=== PATIENT | female | born 1955 | race Two or more races ===

== ENCOUNTER 2022-03-03 04:08 | Day surgery (SDC) | payer BC ==
[2022-02-25 17:32] VITALS: BMI 36.8
[2022-03-03] MEDS ORDERED: IBUPROFEN 400 MG TABLET (FP) PO PRN (06:48)
[2022-03-03] MEDS ORDERED: ACETAMINOPHEN 325 MG TABLET (FP) PO PRN ×2 (06:48→08:59)
[2022-03-03] MEDS ORDERED: PROPOFOL 20 ML ONE ×4 (07:29→07:30)
[2022-03-03] MEDS ORDERED: MIDAZOLAM HCL 2 MG/2 ML SINGLE DOSE VIAL ONE ×2 (07:29→08:15)
[2022-03-03] MEDS ORDERED: SUCCINYLCHOLINE CHLORIDE 200 MG/10 ML SYRINGE ONE (07:37)
[2022-03-03] MEDS ORDERED: oxyCODONE HCL 5 MG TABLET PO PRN (08:59)
[2022-03-03] MEDS ORDERED: ONDANSETRON 4 MG/2 ML VIAL IVPUSH PRN (08:59)
[2022-03-03] MEDS ORDERED: LACTATED RINGERS SOLUTION 1,000 ML IV SCH (09:00)
[2022-03-03 12:31] VITALS: BP 167/82; PULSE 74; TEMP 98.6
== END 2022-03-03 13:04 | disposition home or self-care (01) ==
LOC: JASU-SURG 04:08
PROVIDERS: ATTEND Obstetrics & Gynecology
PROC: 0UJD8ZZ Inspection of Uterus and Cervix, Via Natural or Artificial Opening Endoscopic (ICD-10-PCS; 2022-03-03)
PROC: 0UB98ZZ Excision of Uterus, Via Natural or Artificial Opening Endoscopic (ICD-10-PCS; principal; 2022-03-03 07:30)
PROC: 0UDB7ZX Extraction of Endometrium, Via Natural or Artificial Opening, Diagnostic (ICD-10-PCS; 2022-03-03 07:30)
DX: N95.0 Postmenopausal bleeding (principal); C54.1 Malignant neoplasm of endometrium
CPT/HCPCS: 88305-TC; 88307-TC; 88331-TC; 94760